=== PATIENT | female | born 1985 | race Caucasian/White ===

== ENCOUNTER → 2016-05-17 | Outpatient (CLI) | payer OTHER ==
[~2016-05-17] MED LIST: BIOT50006 PO; MULT1TAB22 PO; PRLSR20 PO
--- NOTE | 2016-05-17 09:49 | DIAGNOSTIC IMAGING REPORT ---
THYROID ULTRASONOGRAPHY CLINICAL HISTORY: Thyroid nodule COMPARISON STUDY: 04/28/2015 FINDINGS: The right lobe of thyroid measures 53 x 11 x 14 mm. The left lobe of thyroid measures 43 x 13 x 16 mm. There is a slightly echogenic mid to upper pole left lobe nodule which appears circumscribed, wider than tall, and contains a hypoechoic halo. This nodule measures 15 x 12 x 9 mm. The nodule previously measured 13 x 10 x 8 mm. IMPRESSION: Very slight (1 to 2 mm) interval increase in the size of the left lobe thyroid nodule. Electronically signed by: Luis Ontiveros M.D. 05/17/2016 9:48 AM Dictated Date/Time: 05/17/2016 9:45 AM
== END | disposition home or self-care (01) ==
LOC: C.ULTR 09:09
PROVIDERS: ATTEND Family Medicine
DX: E04.1 Nontoxic single thyroid nodule (principal)

== ENCOUNTER → 2016-07-23 | Outpatient (CLI) | payer OTHER ==
[2016-07-27 06:44] LABS: ANTI-CENTROMERE AB <1.0 NEG AI (<1.0 NEG); ANTI-SS-A 4.9 POS AI (<1.0 NEG); ANTI-SS-B 1.0 POS AI (<1.0 NEG); DNA ds CRITHIDIA NEGATIVE (NEGATIVE); MICROSOMAL AB <1 IU/ML (<9); Sm Antibody <1.0 NEG AI (<1.0 NEG)
== END | disposition home or self-care (01) ==
LOC: C.LAB1850 08:08
PROVIDERS: ATTEND Internal Medicine Endocrinology, Diabetes & Metabolism
DX: E04.1 Nontoxic single thyroid nodule (principal); M25.649 Stiffness of unspecified hand, not elsewhere classified; R76.8 Other specified abnormal immunological findings in serum

== ENCOUNTER 2016-09-07 19:59 | Emergency (ER) | payer OTHER ==
[~2016-09-07] VITALS: Ht 165.1 cm; Wt 87.2 kg
[2016-09-07 20:01] VITALS: Ht 165.1 cm; Wt 87.2 kg
[2016-09-07] MEDS ORDERED: PRLSR20 PO (20:21)
[2016-09-07] MEDS ORDERED: MULT1TAB22 PO (20:21)
[2016-09-07] MEDS ORDERED: BIOT50006 PO (20:21)
--- NOTE | 2016-09-07 20:33 | EMERGENCY ROOM VISIT NOTE ---
History Report prepared by Mj: Nette Fraser Under the Supervision of: Dr. Parvin Tavarez M.D. First contact with patient: 20:07 Chief Complaint: ABDOMINAL PAIN Stated Complaint: ABD DISCOMFORT UTI SX History of Present Illness The patient is a 30 year old female who presents to the Emergency Room with complaints of persistent lower abdominal pain starting about 8 days ago. The patient went on a trip to [place] last week. She reports increased alcohol consumption during the trip. The patient denies any drug use. She reports eating unusual foods during her trip. She had unprotected sex about 10 days ago. She did not know the person who she had sexual intercourse with. Her last normal menstrual period was at the end of July. She did not take a test. For the past 8 days, she has been having dizziness, diaphoresis, mild headache, nausea, abdominal pain, bloated abdomen, low back pain, increased frequency of urination, and burning with urination. She rates a pain intensity of 3/10. She had diarrhea last week which has now resolved. The patient denies any abnormal vaginal discharge, lesions, or any other complaints. She notes a normal appetite and a normal fluid intake. She was referred to the Emergency Room by [facility]. Source of History: patient Onset: about 8 days ago Position: abdomen (lower) Symptom Intensity: 3/10 Timing: other (persistent) Associated Symptoms: + headache, + diaphoresis, + nausea, + back pain, + diarrhea (resolved) Review of Systems See HPI for pertinent positives & negatives. A total of 10 systems reviewed and were otherwise negative. Past Medical & Surgical Medical Problems: (1) No Known Active Medical Problems Family History Cancer Diabetes mellitus Gallbladder disease Hypertension Social History Smoking Status: Current Every Day Smoker Alcohol Use: occasionally Marital Status: single Housing Status: lives with family Occupation Status: employed Current/Historical Medications Scheduled Biotin (Biotin), 5,000 MCG PO DAILY Multiple Vitamins W/ Minerals (One Daily For Women), 1 TAB PO DAILY Scheduled PRN Omeprazole (Prilosec), 20 MG PO DAILY PRN for Heartburn Allergies Coded Allergies: Penicillins (Verified Allergy, Intermediate, GI SYMPTOMS, 09/07/16) Physical Exam Vital Signs Date Time Temp Pulse Resp B/P (MAP) Pulse Ox O2 Delivery O2 Flow Rate FiO2 09/07/16 23:28 37.0 87 18 145/97 100 09/07/16 20:01 37.0 87 18 145/97 100 Room Air Physical Exam Vital signs reviewed. General: Well-appearing, in no significant distress. HEENT: No scleral icterus, PERRLA, neck supple. Atraumatic. Cardiovascular: Regular rate and rhythm, no extra sounds. Pulmonary: Clear to auscultation bilaterally, normal work of breathing. Abdomen: Soft, mild suprapubic tenderness, no rebound or guarding, nondistended , positive bowel sounds. Pelvic Exam: Normal external genitals, scant amount of whiteish discharge, no foul odor, no cervical motion tenderness. Musculoskeletal: Atraumatic, no peripheral edema. Neurologic: Patient awake alert and oriented x 3, full strength in all 4 extremities. Cranial nerves 2 through 12 grossly intact. Skin: Warm, dry, no rash Medical Decision & Procedures ER Provider Diagnostic Interpretation: US results as stated below per my review and radiologist interpretation: PELVIC COMPLETE NON OB CLINICAL HISTORY: 30 years-old Female presenting with pelvic pain, pain with intercourse. TECHNIQUE: Real-time grayscale and color and spectral Doppler ultrasound imaging of the pelvis was performed first using a transabdominal probe and subsequently transvaginal for better characterization. COMPARISON: None. FINDINGS: Uterus: Normal. Anteverted. The uterus measures 8.2 x 4.1 x 4.7 cm. Endometrial stripe measures 11 mm in thickness. Endometrium normal-appearing, likely in the secretory phase. Cervix with trace endocervical fluid. Right adnexa: Right ovary normal with a dominant follicle noted. Right ovary measures 3.1 x 3.7 x 2.5 cm. Normal color Doppler flow and arterial and venous waveforms within the ovarian parenchyma. Left adnexa: Left ovary normal with multiple follicles noted. Left ovary measures 4.2 x 2.3 x 2.7 cm. Normal color Doppler flow and arterial and venous waveforms within the ovarian parenchyma. Other: No free fluid. IMPRESSION: Normal ovaries and uterus. Electronically signed by: Ravi Rodriguez M.D. 09/07/2016 10:23 PM Dictated Date/Time: 09/07/2016 10:20 PM Laboratory Results 09/07/16 21:00 Red Blood Count 4.88, Mean Corpuscular Volume 90.4, Mean Corpuscular Hemoglobin 30.7, Mean Corpuscular Hemoglobin Concent 34.0, Mean Platelet Volume 10.1, Neutrophils (%) (Auto) 66.2, Lymphocytes (%) (Auto) 22.6, Monocytes (%) (Auto) 10.0, Eosinophils (%) (Auto) 0.9, Basophils (%) (Auto) 0.2, Neutrophils # (Auto ) 5.40, Lymphocytes # (Auto) 1.85, Monocytes # (Auto) 0.82, Eosinophils # (Auto ) 0.07, Basophils # (Auto) 0.02 09/07/16 21:00 Test 09/07/16 21:00 09/07/16 21:26 09/07/16 22:25 White Blood Count 8.17 K/uL (4.8-10.8) Red Blood Count 4.88 M/uL (4.2-5.4) Hemoglobin 15.0 g/dL (12.0-16.0) Hematocrit 44.1 % (37-47) Mean Corpuscular Volume 90.4 fL (80-100) Mean Corpuscular Hemoglobin 30.7 pg (25-34) Mean Corpuscular Hemoglobin Concent 34.0 g/dl (32-36) Platelet Count 209 K/uL (130-400) Mean Platelet Volume 10.1 fL (7.4-10.4) Neutrophils (%) (Auto) 66.2 % Lymphocytes (%) (Auto) 22.6 % Monocytes (%) (Auto) 10.0 % Eosinophils (%) (Auto) 0.9 % Basophils (%) (Auto) 0.2 % Neutrophils # (Auto) 5.40 K/uL (1.4-6.5) Lymphocytes # (Auto) 1.85 K/uL (1.2-3.4) Monocytes # (Auto) 0.82 K/uL (0.11-0.59) Eosinophils # (Auto) 0.07 K/uL (0-0.5) Basophils # (Auto) 0.02 K/uL (0-0.2) RDW Standard Deviation 42.8 fL (36.4-46.3) RDW Coefficient of Variation 13.0 % (11.5-14.5) Immature Granulocyte % (Auto) 0.1 % Immature Granulocyte # (Auto) 0.01 K/uL (0.00-0.02) Urine Color YELLOW Urine Appearance CLOUDY (CLEAR) Urine pH 5.0 (4.5-7.5) Urine Specific [place] 1.028 (1.000-1.030) Urine Protein NEG (NEG) Urine Glucose (UA) NEG (NEG) Urine Ketones TRACE (NEG) Urine Occult Blood NEG (NEG) Urine Nitrite NEG (NEG) Urine Bilirubin NEG (NEG) Urine Urobilinogen NEG (NEG) Urine Leukocyte Esterase NEG (NEG) Urine WBC (Auto) 1-5 /hpf (0-5) Urine RBC (Auto) 0-4 /hpf (0-4) Urine Hyaline Casts (Auto) 1-5 /lpf (0-5) Urine Epithelial Cells (Auto) >30 /lpf (0-5) Urine Bacteria (Auto) NEG (NEG) Urine Crystals AMORPHOUS SEDIMENT (NONE Urine Yeast (Auto) (NONE PRSENT) Anion Gap 8.0 mmol/L (3-11) Est Creatinine Clear Calc Drug Dose 101.9 ml/min Estimated GFR () 102.2 Estimated GFR (Non- 88.2 BUN/Creatinine Ratio 15.5 (10-20) Calcium Level 8.8 mg/dl (8.5-10.1) Total Bilirubin 0.5 mg/dl (0.2-1) Direct Bilirubin 0.1 mg/dl (0-0.2) Aspartate Amino Transf (AST/SGOT) 18 U/L (15-37) Alanine Aminotransferase (ALT/SGPT) 38 U/L (12-78) Alkaline Phosphatase 71 U/L (45-117) Total Protein 7.4 gm/dl (6.4-8.2) Albumin 3.4 gm/dl (3.4-5.0) Human Chorionic Gonadotropin, Qual NEG (NEG) Hepatitis A IgM Antibody NON-REACTIVE (NON-REACTIVE) Hepatitis B Surface Antigen NEG (NEG) Hepatitis B Core IgM Antibody NON-REACTIVE (NON-REACTIVE) Hepatitis C Antibody NEG (NEG) HIV (1&2) Ab and P24 Ag, 4th Gener NEG (NEG) Chlamydia trachomatis RNA NOT DETECTED (NOT DETECTED) Neisseria gonorrhoeae RNA NOT DETECTED (NOT DETECTED) Date/Time Source Procedure Growth Status 09/07/16 22:25 Vaginal Swab Trichomonas Preparation - Final Complete 09/07/16 21:00 Urine , Clean Catch Urine Culture - Final THREE TYPES OF ORGANISMS PRESENT, ALL... Complete Laboratory results per my review. Medications Administered Medications (Trade) Dose Ordered Sig/Noe Route Start Time Stop Time Status Last Admin Dose Admin Fluconazole (Diflucan Tab) 150 mg NOW ONCE PO 09/07/16 22:45 09/07/16 22:46 DC 09/07/16 23:28 150 MG ED Course 2007: Past medical records reviewed. The patient was evaluated in room B12B. A complete history and physical examination was performed. 2245: Diflucan Tab 150 mg PO. Upon reevaluation, the patient appeared to have improvement of her symptoms. I discussed findings with her. She verbalized agreement of the treatment plan. She was discharged home. Medical Decision Differential diagnosis: Etiologies such as PID, , appendicitis, diverticulitis, PUD, biliary pathology, UTI, pancreatitis, obstruction, mesenteric ischemia, aortic pathology , infections, inflammatory bowel disease, renal colic, as well as others were entertained. This patient was evaluated and appeared to be in no significant distress. IV access was obtained and laboratory work was drawn. 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 Ultrasound of the pelvis was performed and is negative. Pelvic exam was performed and reveals a scant amount of thick adherent white discharge. Patient was given Diflucan 150 mg by mouth. Vaginal cultures are pending. A HIV testing is pending. Patient will follow-up with her [facility] this week as directed. She will return to the ER for worsening of symptoms or any medical concerns. Medication Reconcilliation Current Medication List: was personally reviewed by me Blood Pressure Screening Patient's blood pressure: Elevated blood pressure Blood pressure disposition: Elevated BP felt to be situational Impression Primary Impression: Abdominal pain, colicky Additional Impression: Yeast vaginitis Scribe Attestation The scribe's documentation has been prepared under my direction and personally reviewed by me in its entirety. I confirm that the note above accurately reflects all work, treatment, procedures, and medical decision making performed by me. Departure Information Dispostion Home / Self-Care Referrals Alexey Boyce D.O.Int.Med. Alex Blood M.D. Forms HOME CARE DOCUMENTATION FORM, IMPORTANT VISIT INFORMATION Patient Instructions [facility] Additional Instructions Diagnosis: Yeast vaginitis, colicky abdominal pain You were treated for a yeast infection, a few continue with irritation, you may use an [id number] 3-7 day Monistat. Please call the emergency department tomorrow for results of testing, you may ask for Dr. Tavarez after 5 PM. Follow-up with Dr. Blood of [facility] for reevaluation this week. See your primary care physician for reevaluation of the abdominal pain. Return to the emergency department for worsening of symptoms or any medical concerns. Problem Qualifiers
[2016-09-07 21:08] LABS: BASO % 0.2 %; BASO ABS # 0.02 K/uL (0-0.2); COMPLETE YES; EOS % 0.9 %; HEMATOCRIT 44.1 % (37-47); IG% 0.1 %; LYMPH % 22.6 %; LYMPH ABS # 1.85 K/uL (1.2-3.4); MEAN CELL VOLUME 90.4 fL (80-100); MEAN CORPUSCULAR HEMOGLOBIN 30.7 pg (25-34); MEAN PLATELET VOLUME 10.1 fL (7.4-10.4); NEUT % 66.2 %; PLATELET COUNT 209 K/uL (130-400); RED BLOOD COUNT 4.88 M/uL (4.2-5.4); WHITE BLOOD COUNT 8.17 K/uL (4.8-10.8)
[2016-09-07 21:14] LABS: URINE APPEARANCE CLOUDY (CLEAR); URINE BILIRUBIN NEG (NEG); URINE COLOR YELLOW; URINE EPITHELIAL CELL AUTO >30 /lpf (0-5); URINE NITRITE NEG (NEG); URINE SPECIFIC GRAVITY 1.028 (1.000-1.030); UROBILINOGEN NEG (NEG); ZZUR CULT IF INDIC CLEAN CATCH YES
[2016-09-07 21:15] LABS: MANUAL MICROSCOPIC REQUIRED? NO; REVIEW REQ? YES
[2016-09-07 21:54] LABS: PREG INTERNAL NEGATIVE QC NEG CLEAR BACKGROUND; PREG INTERNAL POSITIVE QC POS CONTROL LINE
[2016-09-07 21:57] LABS: BUN/CREATININE RATIO 15.5 (10-20); CALCIUM 8.8 mg/dl (8.5-10.1); CREATININE 0.88 mg/dl (0.60-1.20)
[2016-09-07 21:58] LABS: POTASSIUM 3.6 mmol/L (3.5-5.1)
--- NOTE | 2016-09-07 22:24 | DIAGNOSTIC IMAGING REPORT ---
PELVIC COMPLETE NON OB CLINICAL HISTORY: 30 years-old Female presenting with pelvic pain, pain with intercourse. TECHNIQUE: Real-time grayscale and color and spectral Doppler ultrasound imaging of the pelvis was performed first using a transabdominal probe and subsequently transvaginal for better characterization. COMPARISON: None. FINDINGS: Uterus: Normal. Anteverted. The uterus measures 8.2 x 4.1 x 4.7 cm. Endometrial stripe measures 11 mm in thickness. Endometrium normal-appearing, likely in the secretory phase. Cervix with trace endocervical fluid. Right adnexa: Right ovary normal with a dominant follicle noted. Right ovary measures 3.1 x 3.7 x 2.5 cm. Normal color Doppler flow and arterial and venous waveforms within the ovarian parenchyma. Left adnexa: Left ovary normal with multiple follicles noted. Left ovary measures 4.2 x 2.3 x 2.7 cm. Normal color Doppler flow and arterial and venous waveforms within the ovarian parenchyma. Other: No free fluid. IMPRESSION: Normal ovaries and uterus. Electronically signed by: Ravi Rodriguez M.D. 09/07/2016 10:23 PM Dictated Date/Time: 09/07/2016 10:20 PM
[2016-09-07] MEDS ORDERED: FLUCONAZOLE 50 MG TAB PO ONE (22:45)
[2016-09-07 23:28] VITALS: BP 145/97; PULSE 87; TEMP 37; O2SAT 100
[2016-09-10 00:58] LABS: CHLAMYDIA TRACH RNA*** NOT DETECTED (NOT DETECTED); GC (NEIS GONORRHOEAE)RNA** NOT DETECTED (NOT DETECTED)
== END 2016-09-07 23:29 | disposition home or self-care (01) ==
LOC: C.EDB 20:00
DX: R10.84 Generalized abdominal pain (principal); N76.0 Acute vaginitis; Z83.3 Family history of diabetes mellitus; Z82.49 Family history of ischemic heart disease and other diseases of the circulatory system

== ENCOUNTER → 2017-02-17 | Outpatient (CLI) | payer BC, OTHER ==
[~2017-02-17] MED LIST changes: +PRENTAB26 PO
[2017-02-17 12:58] LABS: BASO % 0.4 %; BASO ABS # 0.03 K/uL (0-0.2); EOS % 0.9 %; EOS ABS # 0.06 K/uL (0-0.5); HEMATOCRIT 39.8 % (37-47); HEMOGLOBIN 13.9 g/dL (12.0-16.0); IG# 0.02 K/uL (0.00-0.02); LYMPH % 16.9 %; LYMPH ABS # 1.16 K/uL (1.2-3.4); MEAN CELL VOLUME 88.6 fL (80-100); MEAN CORPUSCULAR HGB CONC 34.9 g/dl (32-36); MEAN PLATELET VOLUME 10.3 fL (7.4-10.4); MONO % 10.2 %; NEUT % 71.3 %; NEUT ABS # 4.91 K/uL (1.4-6.5); PLATELET COUNT 221 K/uL (130-400); RED CELL DISTRIBUTION WIDTH CV 12.4 % (11.5-14.5); RED CELL DISTRIBUTION WIDTH SD 39.8 fL (36.4-46.3); WHITE BLOOD COUNT 6.88 K/uL (4.8-10.8)
== END | disposition home or self-care (01) ==
LOC: C.LAB1850 11:21
PROVIDERS: ATTEND Obstetrics & Gynecology
DX: Z34.00 Encounter for supervision of normal first pregnancy, unspecified trimester (principal)

== ENCOUNTER → 2017-03-31 | Outpatient (CLI) | payer BC ==
[~2017-03-31] MED LIST changes: -PRENTAB26 PO
== END | disposition home or self-care (01) ==
LOC: C.LAB1850 13:47
PROVIDERS: ATTEND Obstetrics & Gynecology
DX: Z34.02 Encounter for supervision of normal first pregnancy, second trimester (principal); Z3A.00 Weeks of gestation of pregnancy not specified

== ENCOUNTER → 2017-05-13 | Outpatient (CLI) | payer BC, OTHER ==
[2017-05-16 17:33] LABS: MICROSOMAL AB <1 IU/ML (<9); TESTOSTERONE,TOTAL 93 ng/dL (2-45)
== END | disposition home or self-care (01) ==
LOC: C.LAB1850 08:42
PROVIDERS: ATTEND Dermatology
DX: R76.8 Other specified abnormal immunological findings in serum (principal); M25.50 Pain in unspecified joint; E04.1 Nontoxic single thyroid nodule; L65.9 Nonscarring hair loss, unspecified

== ENCOUNTER → 2017-06-20 | Outpatient (CLI) | payer OTHER ==
[2017-06-20 17:30] LABS: HEMATOCRIT 35.9 % (37-47); HEMOGLOBIN 12.2 g/dL (12.0-16.0)
== END | disposition home or self-care (01) ==
LOC: C.LAB1850 16:29
PROVIDERS: ATTEND Obstetrics & Gynecology
DX: Z34.03 Encounter for supervision of normal first pregnancy, third trimester (principal); Z3A.00 Weeks of gestation of pregnancy not specified

== ENCOUNTER 2017-09-19 19:53 | Inpatient (IN) | payer OTHER ==
[~2017-09-19] VITALS: Ht 175.3 cm; Wt 107.0 kg
[2017-09-19 20:30] VITALS: Ht 175.3 cm; Wt 107.0 kg
[2017-09-19 21:03] LABS: HEMATOCRIT 38.6 % (37-47); HEMOGLOBIN 13.3 g/dL (12.0-16.0); MEAN CELL VOLUME 85.6 fL (80-100); MEAN CORPUSCULAR HEMOGLOBIN 29.5 pg (25-34); MEAN CORPUSCULAR HGB CONC 34.5 g/dl (32-36); MEAN PLATELET VOLUME 11.1 fL (7.4-10.4); PLATELET COUNT 187 K/uL (130-400); RED CELL DISTRIBUTION WIDTH CV 12.5 % (11.5-14.5); WHITE BLOOD COUNT 11.04 K/uL (4.8-10.8)
[2017-09-19] MEDS: LACTATED RINGER'S 1000ML 1,000 ML IV PRN (21:37)
[2017-09-19] MEDS ORDERED: PRENTAB26 PO (22:03)
[2017-09-20] MEDS ORDERED: BUPIVACAINE 0.25% 30 ML VIAL ONE (01:05)
[2017-09-20] MEDS ORDERED: FENTANYL CITRATE INJ 50 MCG/1 ML 2 ML VIAL ONE (01:06)
[2017-09-20] MEDS ORDERED: FENTANYL 2MCG/ML ROPIV 1.25MG/ML 100ML BAG ONE (01:06)
[2017-09-20] MEDS ORDERED: EpHEDrine SULFATE INJ 50 MG/ML AMP ONE (01:06)
[2017-09-20] MEDS ORDERED: NALOXONE HCL INJ 1 MG in SODIUM CHLORIDE 0.9% 1000ML 1,000 ML IV PRN (01:33)
[2017-09-20] MEDS ORDERED: LACTATED RINGER'S 1000ML 500 ML IV PRN ×2 (01:33→06:33)
[2017-09-20] MEDS ORDERED: ONDANSETRON INJ 2 MG/ML 2 ML VIAL IV PRN (01:45)
[2017-09-20] MEDS ORDERED: NALOXONE HCL INJ 0.4 MG/1 ML VIAL/CARP IV PRN (01:45)
[2017-09-20] MEDS ORDERED: EpHEDrine SULFATE INJ 50 MG/ML AMP IV PRN (01:45)
[2017-09-20] MEDS ORDERED: NALBUPHINE HCL INJ 10 MG/ML 1ML AMP IV PRN (01:45)
[2017-09-20] MEDS ORDERED: DiphenhydrAMINE HCL 50 MG/ML VIAL IV PRN (01:45)
[2017-09-20] MEDS: FENTANYL 2MCG/ML ROPIV 1.25MG/ML 100ML BAG EPI PRN ×4 (01:53→15:00)
[2017-09-20] MEDS ORDERED: OXYTOCIN 30 UNITS/500ML NSS IV PRN ×2 (06:45→16:15)
[2017-09-20] MEDS: LACTATED RINGER'S 1000ML 1,000 ML IV PRN (07:57)
--- NOTE | 2017-09-20 08:49 | Anesthesiology Progress Note ---
Anesthesia Progress Note Date of Service Sep 20, 2017. Progress Notes Called to see patient for increasing discomfort with contractions. Feeling it low in pelvis, not one side or the other. Bolused with 5ml of 1.5% lidocaine into epidural after - aspiration. Vitals stable, FHR stable, pain improving within a couple cx's.
--- NOTE | 2017-09-20 11:25 | Anesthesiology Progress Note ---
Anesthesia Progress Note Date of Service Sep 20, 2017. Progress Notes Called once again for increasing pain with contractions. Pain in similar position to before, she is now 10cm but the head is still high. Bolus with 5ml 1.5% lido without problem after - aspiration.
[2017-09-20] MEDS ORDERED: OXYCODONE/ACETAMINOPHEN 5-325 TAB PO PRN (16:15)
[2017-09-20] MEDS ORDERED: BENZOCAINE 20% AER SPR 82.5 GM CAN EXT PRN (16:15)
[2017-09-20] MEDS ORDERED: LANOLIN OINT EXT PRN (16:15)
[2017-09-20] MEDS ORDERED: ACETAMINOPHEN/CODEINE 300/30MG TAB PO PRN ×2 (16:15)
[2017-09-20] MEDS ORDERED: HYDROCORTISONE ACETATE 25 MG SUPP PR PRN (16:15)
[2017-09-20] MEDS ORDERED: SUPERCREAM 0.870 % 15GM JAR EXT PRN (16:15)
--- NOTE | 2017-09-20 16:36 | OPERATIVE REPORT ---
DATE OF OPERATION: 09/20/2017 VAGINAL DELIVERY PREOPERATIVE DIAGNOSIS: Maternal exhaustion, fully dilated for 5 hours in labor, occiput posterior position. POSTOPERATIVE DIAGNOSIS: Maternal exhaustion, fully dilated for 5 hours in labor, occiput posterior position. PROCEDURE: Low vacuum assisted delivery. SURGEON: Dr. Rodriguez. AIRLINE STATION AGENT: None. ANESTHETIC: Epidural. DRAINS: None. COMPLICATIONS: None. ESTIMATED BLOOD LOSS: 200 mL. SPECIMENS: Cord gases. DISPOSITION: Labor and delivery. DESCRIPTION OF PROCEDURE: Ligia had been fully dilated for 5 hours. We did offer further pushing, I offered a section and I offered vacuum. The patient was at +2 cm station. There was some significant caput; however, the baby was also in occiput posterior position. Discussed the risks of the vacuum and the patient wished to try. Sterilely, the bladder was drained with a red rubber catheter. Position was obtained, +2 cm station, occiput posterior. Vacuum was applied. Over 3 contractions and 2 total pop-offs, the baby was delivered in occiput posterior position. Mouth and then nares suctioned. No nuchal cord. There was some thin meconium. Baby was delivered with gentle traction, no excessive force. Live vigorous infant. Cord clamped and cut. Cord gases obtained. Cord blood obtained. Placenta removed with gentle traction. IV Pitocin started. There had been a small midline episiotomy made to facilitate delivery. This was repaired with 3-0 Vicryl. Sponge and instrument counts correct. Rectal exam negative for defects or sutures. I attest to the content of the Intraoperative Record and any orders documented therein. Any exception s are noted below.
[2017-09-20] MEDS: IBUPROFEN 600 MG TAB PO PRN ×2 (17:19→21:23)
[2017-09-20 18:00] VITALS: BP 138/89; PULSE 93; TEMP 37; O2SAT 99
[2017-09-20] MEDS: DOCUSATE SODIUM 100 MG CAP PO SCH (20:01)
[2017-09-20 20:25] VITALS: BP 124/79; PULSE 84; TEMP 36.8; O2SAT 99
[2017-09-20 23:20] VITALS: BP 128/79; PULSE 97; TEMP 36.7; O2SAT 99
[2017-09-21] MEDS: IBUPROFEN 600 MG TAB PO PRN ×4 (01:44→20:39)
[2017-09-21 04:15] VITALS: BP 100/65; PULSE 99; TEMP 36.9
[2017-09-21 06:50] LABS: HEMATOCRIT 30.7 % (37-47); HEMOGLOBIN 10.5 g/dL (12.0-16.0)
--- NOTE | 2017-09-21 07:06 | Progress Note ---
Subjective Sep 21, 2017. Subjective conversation w/ patient Ambulation: ambulating normally Voiding: no voiding problems Passing Gas: Yes Diet Tolerance: Regular Diet Lochia: Moderate Pain: Improving Problem List Medical Problems: (1) No Known Active Medical Problems (2) Normal labor Review of Systems Constitutional: No fever, No chills Respiratory: No shortness of breath Cardiac: No chest pain, No palpitations Abdomen: No nausea, No vomiting Female : No dysuria Objective Vital Signs Date Time Temp Pulse Resp B/P (MAP) Pulse Ox O2 Delivery O2 Flow Rate FiO2 09/21/17 04:15 36.9 99 20 100/65 (77) Room Air 09/20/17 23:20 99 Room Air 09/20/17 23:20 36.7 97 20 128/79 (95) Room Air 09/20/17 20:25 36.8 84 18 124/79 (94) Room Air 09/20/17 20:25 99 Room Air 09/20/17 18:00 37.0 93 18 138/89 (105) 99 Room Air 09/20/17 18:00 Room Air Physical Exam General Appearance: WELL-APPEARING, NO APPARENT DISTRESS Respiratory/Chest: normal breath sounds, no respiratory distress Cardiovascular: regular rate, rhythm Abdomen: soft Fundus: Firm (at umbilicus) Laboratory Results Last 24 Hours Test 09/21/17 06:27 Hemoglobin 10.5 g/dL Hematocrit 30.7 % Medications Current Inpatient Medications Medications (Trade) Dose Ordered Sig/Noe Route Start Time Stop Time Status Last Admin Dose Admin Lactated Ringer's 1,000 ml @ 999 mls/hr Q1H1M PRN IV 09/19/17 20:38 10/19/17 20:37 09/20/17 07:57 999 MLS/HR Oxytocin (Pitocin IV) 30 units UD PRN IV 09/20/17 06:45 10/20/17 06:44 09/20/17 06:45 30 UNITS Lactated Ringer's 500 ml @ 999 mls/hr Q31M PRN IV 09/20/17 06:33 10/20/17 06:32 Oxytocin (Pitocin IV) 30 units UD PRN IV 09/20/17 16:15 10/20/17 16:14 Benzocaine (Dermoplast Aero Spr) 1 appln PRN PRN EXT 09/20/17 16:15 10/20/17 16:14 Cocaine HCl (Supercream 0.870% Cr) BID PRN EXT 09/20/17 16:15 10/04/17 16:14 09/21/17 02:08 15 GM Hydrocortisone Acetate (Anusol Hc Supp) 25 mg BID PRN WI 09/20/17 16:15 10/20/17 16:14 Lanolin (Lanolin Oint) PRN PRN EXT 09/20/17 16:15 10/20/17 16:14 Prenat Multivit/ Ncr Operator/Iron/Folic Ac ( Vitamin Tab) 1 tab DAILY PO 09/21/17 08:00 10/21/17 07:59 Ibuprofen (Motrin Tab) 600 mg Q4H PRN PO 09/20/17 16:15 10/20/17 16:14 09/21/17 06:04 600 MG Acetaminophen (Tylenol Tab) 650 mg Q6H PRN PO 09/20/17 16:15 10/20/17 16:14 Acetaminophen/ Codeine Phosphate (Tylenol w/ Codeine #3 Tab) 1 tab Q4H PRN PO 09/20/17 16:15 10/20/17 16:14 Acetaminophen/ Codeine Phosphate (Tylenol w/ Codeine #3 Tab) 2 tab Q4H PRN PO 09/20/17 16:15 10/20/17 16:14 Bisacodyl (Dulcolax Tab) 5 mg 20 PO 09/21/17 20:00 09/21/17 20:01 Bisacodyl (Dulcolax Supp) 10 mg DAILY PRN [place] 09/22/17 07:00 Docusate Sodium (coLACE CAP) 100 mg BID PO 09/20/17 20:00 10/20/17 19:59 09/20/17 20:01 100 MG Assessment and Plan Post- Day#: 1 Continue Routine Care: Analgesia PRN Escalate diet as needed Ambulation encouraged. Resident Physician Supervision Note: I interviewed and examined the patient. Discussed with Dr. lozada and agree with findings and plan as documented in the note. Any exceptions or clarifications are listed here: [None] Documented By: Dionicio Rodriguez
[2017-09-21 07:57] VITALS: BP 118/70; PULSE 76; PULSE 96; TEMP 36.5; O2SAT 98
[2017-09-21] MEDS: PRENATAL VITAMIN TAB PO SCH (07:59)
[2017-09-21] MEDS: DOCUSATE SODIUM 100 MG CAP PO SCH ×2 (07:59→20:19)
[2017-09-21] MEDS: ACETAMINOPHEN 325 MG TAB PO PRN ×2 (08:19→16:24)
[2017-09-21 11:25] VITALS: BP 106/72; PULSE 72; TEMP 36.5
[2017-09-21 16:05] VITALS: BP 136/73; PULSE 74; TEMP 37.1; O2SAT 99
[2017-09-21] MEDS ORDERED: BISACODYL 5 MG TABEC PO SCH (20:00)
[2017-09-22] VITALS: BP 122/65; TEMP 36.6
[2017-09-22] MEDS: ACETAMINOPHEN 325 MG TAB PO PRN ×2 (00:10→06:38)
--- NOTE | 2017-09-22 06:54 | Progress Note ---
Subjective Sep 22, 2017. Subjective conversation w/ patient Ambulation: ambulating normally Voiding: no voiding problems Passing Gas: Yes Diet Tolerance: Regular Diet Lochia: Moderate Pain: Improving Problem List Medical Problems: (1) No Known Active Medical Problems (2) Normal labor Review of Systems Constitutional: No fever, No chills Respiratory: No shortness of breath Cardiac: No chest pain, No palpitations Abdomen: No nausea, No vomiting Objective Vital Signs Date Time Temp Pulse Resp B/P (MAP) Pulse Ox O2 Delivery O2 Flow Rate FiO2 09/22/17 00:00 Room Air 09/22/17 00:00 36.6 18 122/65 (84) Room Air 09/21/17 16:05 99 Room Air 09/21/17 16:05 37.1 74 16 136/73 (94) 99 Room Air 09/21/17 11:25 36.5 72 16 106/72 (83) Room Air 09/21/17 11:25 Room Air 09/21/17 07:57 36.5 96 18 118/70 (86) 98 Room Air Physical Exam General Appearance: WELL-APPEARING, NO APPARENT DISTRESS Respiratory/Chest: normal breath sounds, no respiratory distress Cardiovascular: regular rate, rhythm Abdomen: soft Fundus: Firm (at umbilicus) Extremities: no calf tenderness Medications Current Inpatient Medications Medications (Trade) Dose Ordered Sig/Noe Route Start Time Stop Time Status Last Admin Dose Admin Lactated Ringer's 1,000 ml @ 999 mls/hr Q1H1M PRN IV 09/19/17 20:38 10/19/17 20:37 09/20/17 07:57 999 MLS/HR Oxytocin (Pitocin IV) 30 units UD PRN IV 09/20/17 06:45 10/20/17 06:44 09/20/17 06:45 30 UNITS Lactated Ringer's 500 ml @ 999 mls/hr Q31M PRN IV 09/20/17 06:33 10/20/17 06:32 Oxytocin (Pitocin IV) 30 units UD PRN IV 09/20/17 16:15 10/20/17 16:14 Benzocaine (Dermoplast Aero Spr) 1 appln PRN PRN EXT 09/20/17 16:15 10/20/17 16:14 Cocaine HCl (Supercream 0.870% Cr) BID PRN EXT 09/20/17 16:15 10/04/17 16:14 09/21/17 02:08 15 GM Hydrocortisone Acetate (Anusol Hc Supp) 25 mg BID PRN SC 09/20/17 16:15 10/20/17 16:14 Lanolin (Lanolin Oint) PRN PRN EXT 09/20/17 16:15 10/20/17 16:14 Prenat Multivit/ [place]/Iron/Folic Ac ( Vitamin Tab) 1 tab DAILY PO 09/21/17 08:00 10/21/17 07:59 09/21/17 07:59 1 TAB Ibuprofen (Motrin Tab) 600 mg Q4H PRN PO 09/20/17 16:15 10/20/17 16:14 09/21/17 20:39 600 MG Acetaminophen (Tylenol Tab) 650 mg Q6H PRN PO 09/20/17 16:15 10/20/17 16:14 09/22/17 06:38 650 MG Acetaminophen/ Codeine Phosphate (Tylenol w/ Codeine #3 Tab) 1 tab Q4H PRN PO 09/20/17 16:15 10/20/17 16:14 Acetaminophen/ Codeine Phosphate (Tylenol w/ Codeine #3 Tab) 2 tab Q4H PRN PO 09/20/17 16:15 10/20/17 16:14 Bisacodyl (Dulcolax Supp) 10 mg DAILY PRN SC 09/22/17 07:00 Docusate Sodium (coLACE CAP) 100 mg BID PO 09/20/17 20:00 10/20/17 19:59 09/21/17 20:19 100 MG Assessment and Plan Post- Day#: 2 Continue Routine Care: Analgesia PRN Escalate diet as needed Ambulation encouraged. Discharge today Resident Physician Supervision Note: I interviewed and examined the patient. Discussed with Dr. Lazo and agree with findings and plan as documented in the note. Any exceptions or clarifications are listed here: [None] Documented By: Monica Stephen
--- NOTE | 2017-09-22 06:57 | Discharge Instructions ---
Discharge Instructions Date of Service Sep 22, 2017. Admission Reason for Admission: George Bulb Discharge Discharge Diagnosis / Problem: Vaginal Delivery Discharge Goals Goal(s): Routine recovery after delivery Medications Continue Dispensed Medications: supercream, dermaplast, tucks, lansinoh Activity Recommendations Activity Limitations: per Instructions/Follow-up section . Instructions / Follow-Up Instructions / Follow-Up ACTIVITY RECOMMENDATIONS: * Gradual return to full activity over the next 2-3 weeks. * No lifting - nothing heavier than baby over the next 2-3 weeks. * Do not engage in vigorous exercise, sexual activity or sports until cleared by your physician. * Do not drive or operate any motorized equipment until cleared by your physician. * You may shower/bathe daily. MEDICATIONS: For discomfort or pain, you may use Acetaminophen (Tylenol), Ibuprofen (Advil), or Naproxen (Aleve) following the package directions. For constipation you may use Colace following the package directions. BREAST CARE: If you are not breast feeding: * Wear a supportive bra 24 hours a day for one to two weeks. * Avoid stimulating your breasts and nipples as much as possible during the first few weeks after delivery. * When taking a shower, have the warm water hit your back, not breasts. * When your breasts feel full, apply ice packs. Usually three to four times a day helps ease the discomfort. * Take a mild pain medication (Tylenol / Motrin) when you are uncomfortable. If breast feeding: * Use breast milk to lubricate nipples. Lansinoh cream may be used for sore nipples. You do not need to remove cream prior to breast feeding. If using a different brand of cream, check the label for directions regarding removal of cream prior to nursing. * Wear a supportive bra. * If having problems with breasts or breast feeding, call a sales development consultant or your health care provider. EPISIOTOMY CARE: After delivery, if you have an episiotomy (stitches), the following steps will ease discomfort and aid healing. * For the first 24 hours after delivery, place ice packs next to your episiotomy to help reduce swelling. * After the first 24 hour-period, sitz baths, either portable or in the tub, are suggested. A shower with a shower arm sprayed over the episiotomy may be comforting. * Rose care should be done after each voiding and bowel movement. Squirt warm water from a plastic bottle over the perineum (region of the body between the anus and urinary opening) and pat dry. * Use Dermoplast to ease discomfort. Shake container. [place] directly over the episiotomy. Place a Tucks on a clean sanitary pad next to your episiotomy. SPECIAL CARE INSTRUCTIONS: When you are discharged from the hospital, it is important for you to follow the instructions listed below: * During the first week at home, you should be able to care for yourself and your baby. In addition, the usual light household activities are encouraged. * Limit your activities to the way you feel. Do not try to clean the house or move furniture. Be sensible. * If you actively engage in sports and have done so up until the time of your delivery, you may resume these activities as soon as you feel able. This may take up to one month or even longer. Use good judgment. * Continue to take your vitamins for at least six weeks after the of your baby. * Your diet need not be limited unless you were on a special diet before your delivery. Breast-feeding mothers need around 2500 calories per day and at least 64-80 ounces of fluid per day (8 to 10 glasses). * You should eat foods from the four major food groups. Crash diets or fad diets are to be avoided. Eating lean meats, fresh fruits and vegetables, low-fat dairy products, high fiber foods and a regular exercise program, will help you get back to your pre- weight without putting your health at risk. * Constipation is sometimes a problem after delivery. Take a mild laxative as needed. If breast feeding, Milk of Magnesia is acceptable to use. You may use a suppository or Fleets enema if no episiotomy. * A daily shower or tub bath is suggested. Be sure to thoroughly and gently dry the perineum. * A bloody vaginal discharge will usually continue until around four weeks post . A small amount of bleeding may continue for as long as six weeks. Vaginal discharge changes from the bright red bleeding after delivery to pink then brownish and finally yellowish-pink before becoming white and disappearing. * Bleeding may increase with activity. Your first period may come in 4-8 weeks. If you are breast feeding, your period may be delayed even longer. * [place] (sex) can begin whenever both you and your partner feel comfortable and do not have any form of genital infection. It is recommended that you wait at least six weeks for internal and external healing to occur. If you have questions, please talk to your health care practitioner. A condom should be used to prevent infection and . * Foreplay, gentle intercourse and lubrication is very important the first several times to prevent pain. A water-based lubricant such as K-Y jelly or Astroglide may be used. * If you have RH negative blood and your baby is RH positive, you will receive RHOGAM by injection prior to discharge. The nurse will give you a card to keep with you that has the date and place that you received RHOGAM after delivery. * During your care, you had a Rubella screen done to check for the presence of rubella antibodies in your blood. If your test was negative, you will receive a Rubella vaccine prior to discharge. This vaccine may cause a fever, soreness at the injection site and flu-like symptoms. If these symptoms persist, notify your health care practitioner. is not advised for one month after a Rubella vaccine. * Verbalizes understanding of car seat law as reviewed with patient nursing. * Car Seat hand-out given and reviewed with patient by nursing. * Shaken baby information reviewed with patient by nursing. Call you doctor if: * Heavy bleeding (saturating several pads an hour) or passing clots the size of your fist. * A fever >101 degrees F (38.3 degrees C) on two occasions four hours apart and /or chills. * Unusual pain in the pelvic or vaginal areas. * "Baby Blues" lasting longer than two weeks. If you have any questions or concerns, call your health care practitioner at . FOLLOW UP VISIT: * Please call the office at to schedule a 6 week examination. It is important you keep this appointment. It is important for you to make arrangements for either yearly or twice yearly check-ups thereafter. Current Hospital Diet Patient's current hospital diet: Regular OB Diet Discharge Diet Recommended Diet: Regular OB Diet Pending Studies Studies pending at discharge: no Medical Emergencies . Who to Call and When: Medical Emergencies: If at any time you feel your situation is an emergency, please call 911 immediately. . Non-Emergent Contact Non-Emergency issues call your: Primary Care Provider . . "Provider Documentation" section prepared by Isha Lazo. .
[2017-09-22] MEDS ORDERED: BISACODYL 10 MG SUPP PR PRN (07:00)
[2017-09-22 07:42] VITALS: BP 139/82; PULSE 90; TEMP 36.8; O2SAT 100
[2017-09-22] MEDS: IBUPROFEN 600 MG TAB PO PRN (08:24)
[2017-09-22] MEDS: DOCUSATE SODIUM 100 MG CAP PO SCH (08:24)
[2017-09-22] MEDS: PRENATAL VITAMIN TAB PO SCH (08:24)
[2017-09-22 14:10] VITALS: BP_DIAS 82; PULSE 90; TEMP 36.8
--- NOTE | 2017-09-27 16:07 | DISCHARGE SUMMARY ---
HOSPITAL COURSE: Ligia had a vaginal delivery assisted by vacuum on September 20. She met discharge criteria and was discharged home on September 22. At that time, she was doing well, voiding well, minimal bleeding, pain well controlled. No extremity pain. PHYSICAL EXAMINATION: VITAL SIGNS: Stable. GENITOURINARY: Uterus was firm, nontender. EXTREMITIES: Negative. IMPRESSION AND PLAN: day 2 from operative vaginal delivery. Discharge home with appropriate discharge instructions.
== END 2017-09-22 16:16 | disposition home or self-care (01) | DRG 775 ==
LOC: C.OPB 19:53 → C.LD 19:53 → C.OPB 20:40 → C.OBG 09-20 18:18
PROVIDERS: ADMIT Obstetrics & Gynecology; ATTEND Obstetrics & Gynecology
PROC: 0W8NXZZ Division of Female Perineum, External Approach (ICD-10-PCS; principal; 2017-09-20)
PROC: 10D07Z6 Extraction of Products of Conception, Vacuum, Via Natural or Artificial Opening (ICD-10-PCS; principal; 2017-09-20)
DX: O48.0 Post-term pregnancy (principal); O75.81 Maternal exhaustion complicating labor and delivery; O77.0 Labor and delivery complicated by meconium in amniotic fluid; Z3A.41 41 weeks gestation of pregnancy; Z37.0 Single live birth; Z88.0 Allergy status to penicillin

== ENCOUNTER 2021-08-07 06:35 | Inpatient (IN) ==
[2021-08-07] MEDS ORDERED: LACTATED RINGER'S 1,000 ML IV PRN (06:42)
[2021-08-07] MEDS ORDERED: OXYTOCIN 30 UNITS/500 ML BAG IV PRN ×2 (06:42→10:43)
[2021-08-07] MEDS ORDERED: ceFAZolin 2000MG 2,000 MG/15 ML SYR IV STA (06:42)
--- NOTE | 2021-08-07 06:49 | History & Physical Report ---
Date of Service August 07, 2021 Assessment & Plan (1) Supervision of elderly multigravida: Plan: Admit to L&D. EFM/toco. Labs. COVID swab. She would like epidural. History of Present Illness Chief Complaint: labor Primary Care Provider: APRIL Horner 35yo @ 39 06/20, presented with concerns re: vaginal bleeding and contractions. Contractions and bleeding picked up at about 2am today. bright red, about a quarter-sized. Ctx every few minutes. No rupture of membranes. + movement. with: Cold symptoms started on 03/15. Pt to get PCR covid test and fax us the results Low lying placenta - US at 32 weeks. POSTERIOR PLACENTA 2.4CM FROM IOS, SEEN TRANSVAGINALLY ie; resolved AMA Weekly NST's @ 36 weeks Hypothyroid - w/ endo *Check TFTs Q4wks +KOFFI, SSA, SSB antibodies -previously q2wk echos from 16-28 wks to monitor for heart block per [facility] in 2018, [facility] says can continue same protocol 12/25 * echo's 02/24, 03/10, 03/24, 04/07, 04/21, 05/05, 05/26 @ [facility] [place] *ok to deliver @ [facility]- no other f/u needed until after delivery s/p pfizer GBS positive-treat in labor Allergies Allergy/AdvReac Type Severity Reaction Status Date / Time Penicillins Allergy Intermediate GI SYMPTOMS Verified 08/06/21 15:15 iodine Allergy gi upset Verified 08/06/21 15:15 Home Medications Medication Instructions Recorded Confirmed Type prenat.vits,luh,[id number] 1 tab PO DAILY 12/22/20 08/07/21 History levothyroxine 125 mcg tablet 125 mcg PO .QOD #15 tab 02/03/21 08/07/21 Rx sertraline 50 mg tablet 50 mg PO QAM #90 tab 03/20/21 08/07/21 Rx Patient History Medical History (Updated 08/05/21 @ 13:40 by Nabeel Guan MD) Anxiety Asthma A CHILD/NO CURRENT PROBLEMS GERD (gastroesophageal reflux disease) History of chicken pox History of COVID-19 (~02/28/21) 12/2019, SOB, cough, fever, fatigue, for about 2 plus weeks and no current problems Hypermobility arthralgia Hypothyroidism Obesity Positive KOFFI (antinuclear antibody) Solitary thyroid nodule Surgical History History of tooth extraction Nausea and vomiting after administration of anesthetic agent WITH EPIDURAL USED DURING LABOR S/P cholecystectomy S/P wisdom tooth extraction Family History Grandmother (Paternal) Family history of diabetes mellitus Uncle Family history of diabetes mellitus Father Hypertension Rheumatoid arthritis Hypercholesterolemia Thyroid disease Brother Hypertension Hypercholesterolemia Denies family history of Ovarian cancer Breast cancer Colorectal cancer Social History (Updated 08/03/21 @ 17:51 by Orin Fletcehr, FARRAH) Smoking Status: Former smoker Number of Years Since Quit: 4; Second Hand Exposure: No; Hx Alcohol Use: No Hx Substance Use: No Preferred Language: Turkmen Communication Ability: Effective Occupational Physician Required: No Beliefs That Will Affect Care: None marital status: marital status details: John Houser (36) [phone] Current Living Situation: Family Current Living Situation Comment: lives with spouse, son, dog current occupational status: employed current occupation: [employer] Feels Safe at Home: Yes Gender Identity: Female Assistive Devices: Glasses Review of Systems All systems reviewed & are unremarkable except as noted in HPI & below Physical Exam Physical Exam: FHT Cat 1 [place] Q 3-4 min SVE 4-5/100/-1 Constitutional: WD/WN, vitals as above Respiratory: normal respiratory effort, lungs clear to auscultation no respiratory distress Cardiovascular: Rate/Rhythm: regular rate and regular rhythm Gastrointestinal (Abdomen): Inspection/Auscultation: abdomen normal to inspection Percussion/Palpation: abdomen soft; abdomen nontender Gravid. No s/s chorio or abruption. Skin: no rashes, warm and dry Psychiatric: A+Ox3, euthymic affect Coding Level of Care Code None Diagnoses Supervision of elderly multigravida O09.529
[2021-08-07 07:07] LABS: Hemoglobin 12.6 g/dL (12.0-16.0); Mean Corpuscular Hemoglobin 29.6 pg (25-34); Mean Corpuscular Volume 84.5 fL (80-100); Mean Platelet Volume 10.5 fL (7.4-10.4); Platelet Count 176 K/uL (130-400); RDW Coefficient of Variation 12.9 % (11.5-14.5); RDW Standard Deviation 39.3 fL (36.4-46.3); Red Blood Count 4.26 M/uL (4.2-5.4); White Blood Count 10.14 K/uL (4.8-10.8)
[2021-08-07] MEDS ORDERED: fentaNYL citrate 100 MCG/2 ML VIAL ONE (07:09)
[2021-08-07] MEDS ORDERED: fentaNYL 2MCG/ML ROPIVACAINE 1.25MG/ML 100 ML BAG EPI ONE (07:09)
[2021-08-07] MEDS ORDERED: BUPIVACAINE 0.25% 30 ML VIAL ONE (07:09)
[2021-08-07] MEDS ORDERED: ePHEDrine sulfate 50 MG/ML AMP ONE (07:09)
[2021-08-07] MEDS ORDERED: SODIUM CHLORIDE 0.9% INJ 10 ML VIAL ONE (07:09)
[2021-08-07] MEDS ORDERED: diphenhydrAMINE 50 MG/ML VIAL IV PRN (07:20)
[2021-08-07] MEDS ORDERED: ONDANSETRON INJ 2 MG/ML 2 ML VIAL IV PRN (07:20)
[2021-08-07] MEDS ORDERED: NALBUPHINE HCL INJ 10 MG/ML AMP IV PRN (07:20)
[2021-08-07] MEDS ORDERED: fentaNYL 2MCG/ML ROPIVACAINE 1.25MG/ML 100 ML BAG EPI PRN (07:20)
[2021-08-07] MEDS ORDERED: NALOXONE HCL 1 MG in SODIUM CHLORIDE 0.9% 1000ML 1,000 ML IV PRN (07:20)
[2021-08-07] MEDS ORDERED: ePHEDrine sulfate 50 MG/ML AMP IV PRN (07:20)
[2021-08-07] MEDS ORDERED: NALOXONE HCL 0.4 MG/1 ML VIAL/CARP IV PRN (07:20)
--- NOTE | 2021-08-07 07:22 | Anesthesiology Consultation ---
Date of Service August 07, 2021 Assessment & Plan Chart Review Chart Review: Acceptable Risk for Surgery and Patient NOT seen in Pre Admission Testing ASA ASA2 Proposed Anesthesia Anesthesia Type: General Risk / Benefits Reviewed With: PT / POA / Parent / Guardian, Accepts Plan and Informed Consent Obtained History Height/Weight Height: 5 ft 9 in Weight: 102.965 kg Allergies Allergy/AdvReac Type Severity Reaction Status Date / Time Penicillins Allergy Intermediate GI SYMPTOMS Verified 08/06/21 15:15 iodine Allergy gi upset Verified 08/06/21 15:15 Medications Home Medications Medication Instructions Recorded Confirmed Last Taken prenat.vits,luh,jpl-[id number] 1 tab PO DAILY 12/22/20 08/07/21 08/06/21 08:00 levothyroxine 125 mcg tablet 125 mcg PO .QOD #15 tab 02/03/21 08/07/21 08/02/21 07:30 sertraline 50 mg tablet 50 mg PO QAM #90 tab 03/20/21 08/07/21 08/06/21 08:00 Active Medications Generic Name Dose Route Start Last Admin Trade Name Freq PRN Reason Stop Dose Admin Lactated Ringer's 1,000 mls @ 125 mls/hr 08/07/21 06:42 08/07/21 07:08 Lr IV 08/09/21 06:41 125 mls/hr .Q8H PRN Administration L&D Protocol Protocol Past Medical History Medical History Anxiety Asthma A CHILD/NO CURRENT PROBLEMS GERD (gastroesophageal reflux disease) History of chicken pox History of COVID-19 (~02/28/21) 12/2019, SOB, cough, fever, fatigue, for about 2 plus weeks and no current problems Hypermobility arthralgia Hypothyroidism Obesity Positive KOFFI (antinuclear antibody) Solitary thyroid nodule Exercise / Class Metabolic Activity II 4-5 Yardwork/Stairs/Walk up hill Past Family History Family History Grandmother (Paternal) Family history of diabetes mellitus Uncle Family history of diabetes mellitus Father Hypertension Rheumatoid arthritis Hypercholesterolemia Thyroid disease Brother Hypertension Hypercholesterolemia Denies family history of Ovarian cancer Breast cancer Colorectal cancer Past Surgical History Surgical History History of tooth extraction Nausea and vomiting after administration of anesthetic agent WITH EPIDURAL USED DURING LABOR S/P cholecystectomy S/P wisdom tooth extraction Past Anesthesia History No Hx of Anesthesia Complications and No Family Hx of Anesthesia Complications History of PONV No Hx of PONV and No Hx of Motion Sickness Social History Smoking Status: Never smoker tobacco type: cigarettes Hx Alcohol Use: No alcohol intake frequency: a few times a month Hx Substance Use: Yes substance use type: does not use Review of Systems denies fever/cough/ colds/ chest pain/ SOB/ KIRILL denies KIRILL Physical Exam Vital Signs Last Vital Signs Pulse 81 08/07/21 06:54 Resp 18 08/07/21 06:55 BP 121/80 08/07/21 06:54 ENMT Mouth: no TMJ abnormality and no dentition abnormality Thyromental Distance: > or= 3.5 Finger Breadths Mallampati Class: II Neck neck extension not limited Respiratory normal respiratory effort; no respiratory distress Auscultation: lungs clear to auscultation bilaterally Cardiovascular Rate/Rhythm: regular rate and regular rhythm Neurologic moves all extremities Psychiatric Orientation: alert and oriented x 3 Testing Laboratory Results 08/07/21 06:53
[2021-08-07] MEDS: SERTRALINE HCL 50 MG TABLET PO SCH (08:54)
--- NOTE | 2021-08-07 10:40 | Delivery Summary ---
Vaginal Delivery Summary Date of Service August 07, 2021 Vaginal Delivery Summary PREOPERATIVE DIAGNOSIS: 1. Single intrauterine at 39w5d 2. Labor 3. +KOFFI, SSA, SSB antibodies 4. Hypothyroid 5. Resolved low lying placenta 6. GBS+ POSTOPERATIVE DIAGNOSIS: 1. Single intrauterine at 39w5d 2. Labor 3. +KOFFI, SSA, SSB antibodies 4. Hypothyroid 5. Resolved low lying placenta 6. GBS+ 7. Delivered PROCEDURE: 1. Normal spontaneous vaginal delivery. SURGEON: Keturah Pretty MD ANESTHESIA: Epidural. ESTIMATED BLOOD LOSS: 400 mL FLUIDS: Continuous LR. URINE OUTPUT: Not measured COMPLICATIONS: None. CONDITION: Stable. INDICATIONS: 35 yo at 39 5/7 presented this morning with contractions increasing in frequency and intensity. She was found to be 4cm on arrival. She received an epidural for pain control and continued to spontaneously progress to complete and desired to push. FINDINGS: A viable male , weight pending with Apgars of 8 and 10 at 1 and 5 minutes respectively. SPECIMEN: Cord blood, placenta OPERATIVE REPORT: The patient progressed to 10 cm, 100% effaced and +2 station, pushed over intact perineum with anesthesia to deliver a viable male infant, weight and Apgars as above. Head of delivered in SANTANA position. No nuchal cord was present. Body and shoulders were delivered without difficulty. was delivered to maternal abdomen and nursing staff. Delayed cord clamping was performed for 60 seconds. Cord was clamped and cut. Cord blood was obtained. Placenta delivered spontaneously intact with 3-vessel cord. IV oxytocin and fundal massage were given for excellent hemostasis. Vagina, cervix, perineum, and placenta were inspected. A left vaginal laceration and left labial laceration were repaired using 3-0 and 4-0 vicryl in the usual fashion, majority of EBL was from the lacerations. There was excellent hemostasis. Sponge and needle counts correct x2. No sponges were left behind. Mother and stable in immediate period. [facility] V[facility]inal Delivery Charge Vaginal Delivery Codes: 02596 global code for the antepartum, delivery, and post- Delivery Type Details: [facility]
[2021-08-07] MEDS ORDERED: DIPHTHERIA/TETANUS/PERTUSSIS 0.5 ML SYR/VIAL IM ONE (10:43)
[2021-08-07] MEDS ORDERED: bisacodyL 10 MG SUPP PR PRN (10:43)
[2021-08-07] MEDS ORDERED: HYDROCORTISONE ACETATE 25 MG SUPP PR PRN (10:43)
[2021-08-07] MEDS ORDERED: BENZOCAINE 20% AER SPR 82.5 GM CAN EXT PRN (10:43)
--- NOTE | 2021-08-07 11:57 | Anesthesiology Progress Note ---
Date of Service August 07, 2021 Anesthesia Post Procedure Vital Signs Vital Signs: Pulse Resp BP Pulse Ox 08/07/21 11:35 65 124/82 08/07/21 11:20 117/76 08/07/21 11:05 76 107/74 08/07/21 10:56 81 20 106/77 08/07/21 10:37 85 88 L 08/07/21 10:34 82 92/57 L 94 08/07/21 10:29 70 98 08/07/21 10:28 87 91/51 L 08/07/21 10:27 82 89/40 L 08/07/21 10:24 75 96 08/07/21 10:19 80 97 08/07/21 10:14 83 98 08/07/21 10:09 87 94 08/07/21 10:04 109 H 90 08/07/21 10:01 69 85 L 08/07/21 09:59 67 97 08/07/21 09:55 78 85 L 08/07/21 09:54 84 96 08/07/21 09:49 72 100 08/07/21 09:44 75 100 08/07/21 09:41 65 115/72 08/07/21 09:39 66 100 08/07/21 09:34 69 99 08/07/21 09:29 63 97 08/07/21 09:26 70 110/71 08/07/21 09:25 76 87 L 08/07/21 09:24 76 89 L 08/07/21 09:19 67 97 08/07/21 09:14 66 97 08/07/21 09:13 66 121/75 08/07/21 09:11 76 88 L 08/07/21 09:09 66 99 08/07/21 09:04 75 96 08/07/21 09:03 82 122/73 08/07/21 09:00 82 82 L 08/07/21 08:59 77 98 08/07/21 08:54 67 98 08/07/21 08:53 78 110/65 08/07/21 08:49 70 96 08/07/21 08:44 71 96 08/07/21 08:43 67 109/71 08/07/21 08:39 72 98 08/07/21 08:34 66 97 08/07/21 08:33 64 111/72 08/07/21 08:29 65 98 08/07/21 08:24 84 98 08/07/21 08:23 71 121/74 08/07/21 08:19 71 98 08/07/21 08:14 77 114/69 97 08/07/21 08:10 84 90 08/07/21 08:09 73 97 08/07/21 08:04 73 98 08/07/21 08:03 124/72 08/07/21 07:59 73 97 08/07/21 07:54 75 98 08/07/21 07:52 77 118/70 08/07/21 07:50 75 124/83 08/07/21 07:49 76 119/75 99 08/07/21 07:47 90 112/56 L 08/07/21 07:44 81 114/56 L 98 08/07/21 07:43 76 114/58 L 08/07/21 07:41 99 H 119/82 08/07/21 07:39 95 H 100 08/07/21 07:38 104 H 129/91 08/07/21 07:36 75 129/77 08/07/21 07:34 87 99 08/07/21 07:29 87 96 08/07/21 06:55 18 08/07/21 06:54 81 121/80 Transfer of Care Handoff Completed per policy Notes Mental Status: alert / awake / arousable and participated in evaluation Patient Amnestic to Procedure: Yes Nausea / Vomiting: adequately controlled Pain: adequately controlled Airway Patency, RR, SpO2: stable & adequate BP & HR: stable & adequate Hydration State: stable & adequate Anesthetic Complications: no major complications apparent and Pt Satisfied with anesthetic care
[2021-08-07] MEDS ORDERED: ceFAZolin 1000MG 1,000 MG/7.5 ML SYR IV PRN (13:42)
[2021-08-07] MEDS: IBUPROFEN 600 MG TAB PO PRN ×2 (16:54→23:35)
[2021-08-07] MEDS: ACETAMINOPHEN 325 MG TAB PO PRN (19:57)
[2021-08-07] MEDS: DOCUSATE SODIUM 100 MG CAP PO SCH (19:57)
--- NOTE | 2021-08-08 06:01 | Obstetrical Progress Note ---
Date of Service August 08, 2021 Assessment & Plan (1) Encounter for care and examination after delivery: Plan: Patient is a 35-year-old now female who delivered at 39 5/7 weeks gestation status post , day 1. complicated by advanced maternal age and hypothyroidism as well as KOFFI, SSB, SSA positive antibodies. -Continue routine care,D/C today if cleared by Peds otherwise D/c tomorrow, discharge instructions reviewed with patient -B+, antibody negative, rubella immune, GBS positive-->treated with ancef -Encourage breast-feeding -Encouraged ambulation -Tylenol and ibuprofen as needed for pain control -Follow-up OB appointment in [address] Pretty Admission and Anticipated Discharge Date Admission Date: August 07, 2021 Supervising Physician Co-Signing Physician Notes Resident Physician Supervision Note: I interviewed and examined the patient. Discussed with Dr. Gunter and agree with findings and plan as documented in the note. Any exceptions or clarifications are listed here: Doing well. Would like d/c today but only got rx for gbs x1. will depend on peds, but otherwise ready and instructions given. Documented By: Teresa Barcenas MD, FACOG Subjective Patient is a 35-year-old now female who delivered at 39 5/7 weeks gestation status post , day 1. complicated by advanced maternal age and hypothyroidism as well as KOFFI, SSB, SSA positive antibodies. Patient overall doing well. Pain is a 2 out of 10 today and controlled with Tylenol and ibuprofen. Patient is walking around the room and has been voiding. Patient does deny passing gas or having a bowel movement however. Patient is eating and drinking without difficulty. No nausea no vomiting. Reports lochia is moderate and improved from yesterday. Patient is breast-feeding without difficulty. Denies fevers, chills, chest pain, shortness of breath, UTI symptoms, headache. Patient has no other complaints at this time. Patient does wish to go home if able. Review of Systems Review of Systems: All systems reviewed & are unremarkable except as noted in HPI & below Physical Exam Constitutional: WD/WN, vitals as above Eyes: + anicteric sclerae Neck: trachea midline, no thyromegaly Respiratory: normal respiratory effort, lungs clear to auscultation Cardiovascular: RRR, no murmur, no edema Gastrointestinal (Abdomen): normal bowel sounds, soft, nontender, no hepatosplenomegaly Musculoskeletal: Head/Neck/Chest: normocephalic and head atraumatic Skin: no rashes, warm and dry Neurologic: moves all extremities Psychiatric: A+Ox3, euthymic affect Genitourinary: Uterine fundus palpated 2 cm below the umbilicus, firm. Results & Data ([facility]) Vital Signs (Past 12 Hours) Vital Signs Temp Pulse Resp BP 08/08/21 04:20 36.7 C 87 16 98/62 L 08/07/21 23:30 36.8 C 68 18 117/80 08/07/21 20:10 37.0 C 75 18 128/67
[2021-08-08] MEDS ORDERED: LEVOTHYROXINE SODIUM 125 MCG TABLET PO SCH (06:30)
[2021-08-08] MEDS: IBUPROFEN 600 MG TAB PO PRN (06:38)
[2021-08-08 07:16] LABS: Hematocrit (blood only) 30.1 % (37-47); Hemoglobin 10.3 g/dL (12.0-16.0); Mean Corpuscular Hemoglobin 29.2 pg (25-34); Mean Corpuscular Hgb Conc 34.2 g/dL (32-36); Mean Corpuscular Volume 85.3 fL (80-100); Mean Platelet Volume 10.6 fL (7.4-10.4); Platelet Count 185 K/uL (130-400); RDW Coefficient of Variation 13.1 % (11.5-14.5); RDW Standard Deviation 40.4 fL (36.4-46.3); Red Blood Count 3.53 M/uL (4.2-5.4); White Blood Count 10.14 K/uL (4.8-10.8)
[2021-08-08] MEDS: SERTRALINE HCL 50 MG TABLET PO SCH (07:57)
[2021-08-08] MEDS: DOCUSATE SODIUM 100 MG CAP PO SCH (07:57)
[2021-08-08] MEDS ORDERED: FERROUS SULFATE 325 MG TAB PO SCH (08:00)
[2021-08-08] MEDS ORDERED: PRENATAL VITAMIN 1 TAB PO SCH (08:00)
[2021-08-08] MEDS: ACETAMINOPHEN 325 MG TAB PO PRN (11:20)
[2021-08-08] MEDS ORDERED: bisacodyL 5 MG TABEC PO SCH (20:00)
== END 2021-08-08 17:20 | disposition home or self-care (01) | DRG 807 ==
LOC: OPB 06:35 → 4S1 06:36 → 4E2 13:57